=== PATIENT | female | born 1940 | race Caucasian/White ===

== ENCOUNTER 2017-05-26 07:42 | Outpatient (CLI) | payer OTHER ==
[~2017-05-26] VITALS: Ht 177.8 cm; Wt 64.4 kg
[2017-05-26] VITALS (13 sets, daily range): BP systolic 121–135; BP diastolic 44–86
[~2017-05-26 07:42] MED LIST: ALDACTONE25 MG PO; ASPIR 8181 MG PO; COLACE100 MG; CYMBALTA30 MG PO; HYDROCODONE-AP1 EAC6 PO; IMDUR 30 MG TAB30 M1 PO; LINZESS290 MCG PO; LIPITOR10 MG PO; NEURONTIN 300300 M1; NITROGLYCERIN0.4 MG SUBLING; OMEPRAZOLE40 MG PO; SYNTHROID175 MCG PO; TRAZODONE HCL100 MG PO; WELLBUTRIN 100100 MG; ZANTAC 150MG T150 MG
[2017-05-26 08:14] LABS: HEMATOCRIT 37.7 % (37.0-47.0); HEMOGLOBIN 12.4 gm/dL (12.0-15.0); MCH 32.3 pg (26.0-34.0); MCHC 32.9 g/dL (28.0-37.0); MPV 7.9 fl. (7.2-11.1); RBC 3.84 mil/uL (4.20-5.00); RDW-CV 15.6 % (10.5-14.5); WBC 3.7 thou/uL (4.0-11.0)
[2017-05-26 08:24] LABS: ANION GAP 12 mmol/L (7-16); BUN 19 mg/dL (7-18); CALCIUM 9.2 mg/dL (8.5-10.1); CHLORIDE 103 mmol/L (98-107); CO2 27 mmol/L (21-32); CREATININE 0.7 mg/dL (0.6-1.3); GLUCOSE 81 mg/dL (70-99); POTASSIUM 3.9 mmol/L (3.5-5.1); SODIUM 142 mmol/L (136-145)
[2017-05-26 08:25] LABS: APTT 25.8 Seconds (25.0-31.3); PROTIME 9.5 Seconds (9.20-11.50)
[2017-05-26 08:28] LABS: ALKALINE PHOSPHATASE 62 U/L (46-116); CHOLESTEROL 221 mg/dL (<200); HDL CHOLESTEROL 63 mg/dL (>40); LDL CHOLESTEROL 134 mg/dL (<100); SERUM ASSESSMENT Clear; SGOT 13 U/L (15-37); SGPT 14 U/L (30-65); TC:HDL 3.5 Ratio (Not establshd); TOTAL BILIRUBIN 0.3 mg/dL (<0.1-1.0); TOTAL PROTEIN 7.8 g/dL (6.4-8.2); TRIGLYCERIDE 124 mg/dL (<150); VLDL 25 mg/dL (<40)
--- NOTE | 2017-05-26 15:09 | CARD ---
[address] [address] CARDIAC CATH REPORT Name: TORI COLEMAN Shabnam [address]: [address]#: [id number] Admission: 05/26/17 Attend Phys: Alonso Ram MD, Discharge: Date of : 40 Report #: [id number] THIS REPORT FOR: //name// APPROVED REPORT Patient Details Patient Status: Out-Patient Room #: The patient is a 76 year-old female Event Personnel Alonso Ram Slab Puller, Jodie Lara RN RN, Janel Pan RTR Scrub, Jan Keene Monitor Procedures Performed Left heart catheterization left ventriculography and selective coronary arteriography Indication Chest pain Risk Factors Arterial Hypertension, Hypercholesterolemia Procedure Narrative The patient was brought electively to the Cardiac Catheterization Laboratory and was prepped and draped in a sterile manner. The right femoral was infiltrated with 1% Lidocaine subcutaneous anesthesia. A [place] 6 FR sheath was inserted into the . Coronary angiography was performed using coronary diagnostic catheters. The right coronary system was accessed and visualized with a Diagnostic - JR4 catheter. The left coronary system was accessed and visualized with a Diagnostic - JL4 catheter. The left ventricle was accessed and visualized with a Diagnostic - Pigtail catheter. Left ventricular/Aortic Valve gradient assessed via catheter pullback. Pre-demployment femoral angiogram was performed . The patient tolerated the procedure well and there were no complications associated with the procedure. There was no hematoma. Intraoperative Conscious Sedation Sedation start time: 932 Case end Time: 946 Fentanyl 25 mcg Versed 1 mg Fluoro Time: 2.4 minutes Dose: DAP 99041 cGycm2 344 [place] [address] CARDIAC CATH REPORT Name: TORI COLEMAN Room: [address]#: [id number] Admission: 05/26/17 Attend Phys: Alonso Ram MD, Discharge: Date of : 40 Report #: [id number] Contrast Type and Amount: Visipaque 105 ml Coronary Angiography The patient's coronary anatomy is left dominant. Diagnostic Cath Left Main 0% narrowing LAD 0% narrowing Circumflex Dominant vessel with 0% narrowing Right Coronary Small nondominant vessel with 0% narrowing Left Ventriculography Ejection Fraction was 65-70% based off patient's . The left ventricle is normal in size with normal contractility. The left ventricular ejection fraction is estimated to be 65-70%. Left ventricular wall motion abnormalities are not present. There is no mitral insufficiency. Hemodynamics The aortic pressure is 120/59 mmHg with a mean of 82 mmHg. The left ventricular pressure is 116/-1 mmHg with a mean of mmHg. The left ventricular end diastolic pressure is 3 mmHg. There was no gradient across the aortic valve upon pullback. Conclusion #1 normal coronary arteries, #2 normal left ventricular systolic function, estimated ejection fraction being 65-70%, #3 normal left-sided hemodynamics study. <ELECTRONICALLY SIGNED> By: Alonso Ram MD, [facility] 05/26/17 1509 [id number] [id number] Ram MD, FAC /INF
--- NOTE | 2017-05-26 16:00 | EKG ---
[place] [address] ELECTROCARDIOGRAM REPORT Name: TORI COLEMAN Room: [address]#: [id number] Admission: 05/26/17 Attend Phys: Alonso Ram MD, Discharge: Date of : 40 Report #: [id number] THIS REPORT FOR: //name// [facility] Test Date: 2017-05-26 Test Time: 08:42:33 Pat Name: TORI COLEMAN Department: Room: Gender: [employer] D[employer]: : 1940 Requested By: Alonso Ram Order Number: [id number] Gabino MD: Alonso Ram Measurements Intervals [place] Rate: 69 P: 60 MN: 168 QRS: 11 QRSD: 88 T: 54 QT: 426 QTc: 457 Interpretive Statements Sinus rhythm Minimal ST elevation, anterior leads No previous ECG available for comparison Electronically Signed On 05-26-2017 16:00:10 LINING FELLER by Alonso Ram [email or web address] <ELECTRONICALLY SIGNED> By: Alonso Ram MD, [facility] 05/26/17 1600 [id number] [id number] Alonso Ram MD, FACC /EPI
--- NOTE | 2017-05-27 16:00 | NUR ---
Spoke with patient by phone, states she is doing well, no questions or concerns. No sign of infection of right groin, up and walking without difficulty. Instructed to call with any guestions or concerns.
== END 2017-05-26 15:04 | disposition home or self-care (01) ==
LOC: M.CL 07:42 → M.TBA-CV 09:59 → M.CL 15:04
PROVIDERS: Internal Medicine
DX: R07.9 Chest pain, unspecified (principal); I10 Essential (primary) hypertension; E78.00 Pure hypercholesterolemia, unspecified